=== PATIENT | male | born 1965 | race Caucasian/White ===

== ENCOUNTER 2025-02-25 22:07 | Emergency (ER) | payer BC, SELFPAY ==
[2025-02-25 22:13] VITALS: BP 139/90
[2025-02-25 22:46] LABS: % Eosinophils 10.2 % (0-6); % Lymphocytes 48.5 % (20.5-51.1); % Monocytes 7.9 % (1.7-9.3); % Neutrophils 32.4 % (42.2-75.2); Absolute Basophils 0.1 10^3/uL (0-0.2); Absolute Eosinophils 0.5 10^3/uL (0-0.7); Absolute Lymphocytes 2.3 10^3/uL (1.2-3.4); Absolute Monocytes 0.4 10^3/uL (0.1-0.6); Absolute Neutrophils 1.6 10^3/uL (1.4-6.5); Hematocrit 38.6 % (39.0-52.0); Hemoglobin 13.2 g/dL (13.0-18.0); Mean Corp Hgb Conc. 34.2 g/dL (33.0-37.0); Mean Corpuscular Hgb 30.6 pg (27.0-31.0); Mean Corpuscular Volume 89.4 fL (80.0-94.0); Mean Platelet Volume 9.8 fL (7.4-10.4); Nucleated Red Blood Cells % 0 % (-); Platelet Count 239 10^3/uL (130-400); Red Blood Cell Count 4.32 10^6/uL (4.70-6.10); Red Cell Dist. Width 12.8 % (11.5-14.5); White Blood Cell Count 4.8 10^3/uL (4.8-10.8)
[2025-02-25 23:03] LABS: ALT (SGPT) 42 U/L (0-50); AST (SGOT) 34 U/L (17-59); Albumin 3.9 g/dl (3.5-5.0); Alkaline Phosphatase 112 U/L (38-126); Blood Urea Nitrogen 25 mg/dl (9-20); Calcium 9.1 mg/dl (8.4-10.2); Carbon Dioxide 29 mmol/L (22-30); Chloride 104 mmol/L (98-107); Glucose 126 mg/dl (70-99); Sodium 138 mmol/L (135-145); Total Bilirubin 0.4 mg/dl (0.2-1.3); Total Protein 6.2 g/dl (6.3-8.2); eGFR > 60.00
[2025-02-25 23:13] LABS: Troponin I < 0.012 ng/ml
[2025-02-25 23:58] VITALS: BP 126/80
[2025-02-26] VITALS: BMI 32.6
[2025-02-26 01:00] VITALS: BP 128/80
[2025-02-26 01:46] LABS: Troponin I < 0.012 ng/ml
--- NOTE | 2025-02-26 01:57 | ED.GENMED ---
History of Present Illness
General
Chief Complaint: Chest Pain
Source: patient
Time Seen by Provider: 02/26/25 00:35
History of Present Illness
History of Present Illness:
59-year-old male presents emergency room complaining of chest pain. Patient states that he has been having the discomfort for the past 5 days. It comes and goes but seem to be present more often today. He denies associated shortness breath,
diaphoresis or nausea. Patient is able to perform activities such as exercise without difficulty.
Past History
Past History
ED Past Medical History: None
ED Past Surgical History: Appendectomy, Orthopedic (Bilateral knee replacements) and Other (Inguinal hernia)
Social History
Tobacco: Non-smoker
Alcohol: Occasional
Drug: None
Personal:
Living: with family
Employment: Employed
Family History
Family History: Diabetes
Phy Exam
Physical Exam
Physical Exam:
General: Awake, Alert, Oriented X3. No acute distress.
Vitals: unremarkable
Head: Atraumatic
Eyes: Pupils equal, EOMI
Throat: Airway intact, no exudates
Neck: Trachea midline
Lungs: Clear and equal b/l
Heart: Regular rate, no murmurs
Abd: Soft, Nontender, No pulsatile mass
Neuro: Nonfocal
Skin: Warm, dry, no rash
Extremities: pulses equal b/l, no edema
Scores
Heart Score for Chest Pain Patients
STEMI patient?: No
History: Slightly or Non-Suspicious
ECG: Nonspecific Repolarization
Age: >45 - <65 years
Risk Factors: 1 or 2 Risk Factors
Troponin: </= Normal Limit
Heart Score for Chest Pain Patients: 3
Heart Score Risk: 2.5% MACE over next 6 weeks
Course
Orders/Labs/Results
Orders:
Orders
02/25/25 22:09
EKG [Electrocardiogram (*1)] Urgent
Reason for Study: Chest Pain
EKG- Treatment ONCE
02/25/25 22:24
Complete Blood Count/With Diff Urgent
Comprehensive Metabolic Panel Urgent
Troponin I Urgent
02/26/25 00:58
CR Chest - 2 Views Urgent
Comment:
Reason For Exam: chest pain
02/26/25 01:16
Troponin I Urgent
Abnormal Lab Results
02/25/25
22:24
RBC 4.32 L 10^6/uL
(4.70-6.10)
Hct 38.6 L %
(39.0-52.0)
Neutrophils % 32.4 L %
(42.2-75.2)
Eosinophils % 10.2 H %
(0-6)
BUN 25 H mg/dl
(9-20)
Glucose 126 H mg/dl
(70-99)
Total Protein 6.2 L g/dl
(6.3-8.2)
02/25/25 22:24
02/25/25 22:24
Vital Signs
Initial and Last Documented VS:
Initial Vital Signs
Temp Pulse Resp BP Pulse Ox
98.4 F 68 18 139/90 96
02/25/25 22:13 02/25/25 22:13 02/25/25 22:13 02/25/25 22:13 02/25/25 22:13
Last Documented Vital Signs
Temp Pulse Resp BP Pulse Ox
98.4 F 58 17 126/80 96
02/25/25 22:13 02/26/25 00:00 02/26/25 00:00 02/25/25 23:58 02/26/25 00:00
MDM/Problems Addressed
Differential Diagnosis Includes:
Acute coronary syndrome, chest wall pain, GERD, pericarditis
MDM/Problems Addressed:
Patient presents with chest pain. It somewhat atypical. Troponins negative x 2. EKG shows no acute ischemic changes. Patient stable for discharge and outpatient follow-up
Chronic conditions affecting care: Other (High cholesterol)
*Critical Care Note
Total Time (30-74mins, 75-104mins- exclusive of procedures): Not Applicable
ED Attending Note
-
Portions of this chart may have been created with voice recognition software.� Occasional wrong word or��sound alike� substitutions may have occurred due to the inherent limitations of voice recognition software.
Discharge Plan
Departure
Patient Disposition: Home (Routine Discharge)
Date of Disposition: 02/26/25
Time of Disposition: 01:55
Patient with high blood pressure during this ER visit?: No
Condition: Good
Discharge Problem:
Chest pain
Instructions: Chest Pain DCA Follow Up
Prescriptions:
No Action
multivitamin [Mia-Nmqbug-Amkbo] 1 EACH tablet
1 ea PO DAILY
sulfamethoxazole-trimethoprim 1 TABLET tablet
1 tab PO BID Qty: 14 0RF
epinephrine [EpiPen 2-Rosales] 0.3 mg/0.3 mL auto-injector
0.3 mg IM ONCE PRN (Reason: anaphylaxis) Qty: 2 0RF
prednisone 20 mg tablet
20 mg PO DAILY 4 Days Qty: 4 0RF
oxycodone-acetaminophen [Percocet] 5-325 mg tablet
1 tab PO Q4HPRN PRN (Reason: pain) Qty: 5 0RF
Referrals:
Kyra Frazier PA-C [Family Provider] -
Activity Restrictions/Additional Instructions:
You came to the emergency room for evaluation of chest pain. Your workup here is very reassuring. Your heart test is negative x 2. Your EKG does not show any signs of a heart attack. Your chest x-ray is unremarkable. You should follow-up with
cardiology as an outpatient however given your history of high cholesterol and age. You should receive a call from [facility] to schedule a follow-up appointment.
Interventions
Interventions:
*Risk Screen - Suicide Last Done: 02/25/25 22:13
*General Assessment Last Done: 02/25/25 22:13
*Neglect/Abuse Screening Last Done: 02/25/25 22:13
*ED- Fall Risk Assessment Last Done: 02/25/25 22:13
*ED COVID-19 Vaccine History Last Done: 02/25/25 22:13
ED- Cardiac Assessment Last Done: 02/26/25 00:00
Discharge Date and Time
Print Language: SAUDI ARABIAN
== END 2025-02-26 02:00 | disposition home or self-care (01) ==
LOC: EMR 22:07
PROVIDERS: Emergency Medicine; EMERGENCY PHYSICIAN Emergency Medicine; FAMILY PHYSICIAN Physician Assistant Medical
DX: R07.9 Chest pain, unspecified (principal); E78.00 Pure hypercholesterolemia, unspecified; Z96.653 Presence of artificial knee joint, bilateral; Z90.49 Acquired absence of other specified parts of digestive tract
CPT/HCPCS: 99285; 71046; 80053; 84484; 85025; 93005